=== PATIENT | female | born 1960 | race Caucasian/White ===

== ENCOUNTER 2019-04-12 07:22 | Day surgery (SDC) | payer OTHER ==
[2019-04-12] MEDS ORDERED: FENTAnyl 50 MCG/ML VIAL (10:36)
[2019-04-12] MEDS ORDERED: MIDAZOLAM 1 MG/ML 2 ML INJ ×2 (10:36)
== END 2019-04-12 12:19 | disposition home or self-care (01) ==
LOC: GIL 07:22
DX: K64.8 Other hemorrhoids (principal); K62.89 Other specified diseases of anus and rectum; K29.30 Chronic superficial gastritis without bleeding; K44.9 Diaphragmatic hernia without obstruction or gangrene
CPT/HCPCS: 43239; 88305; 88312